=== PATIENT | female | born 2000 | race Caucasian/White ===

== ENCOUNTER 2022-08-09 09:27 | Emergency (ER) | payer BC ==
[~2022-08-09] VITALS: Ht 170.2 cm; Wt 77.1 kg
[2022-08-09 09:36] VITALS: BP_SYST 141
--- NOTE | 2022-08-09 09:38 | NUR ---
Patient to ER bed 07 to gown for evaluation. Side rails up. Report given to OLVIN OCHOA.
--- NOTE | 2022-08-09 09:50 | NUR ---
Patient arrived to ED for c/o animal bite. Patient has wound from left ear. Patient had a 4 month wilson retriever. Patient denies taking any other medications prior to coming to hospital. Denies PMH. Dr. Villa [place] [facility] [place]
[2022-08-09] MEDS ORDERED: DIPHTH,PERTUSS(ACELL),TET VAC 0.5 ML VIAL (Tdap) I.M. ONE (10:00)
[2022-08-09] MEDS ORDERED: AUG875 PO (10:00)
[2022-08-09] MEDS ORDERED: BACITRACIN 1 GM OINT TP ONE (10:22)
[2022-08-09 10:33] VITALS: BP_SYST 125
--- NOTE | 2022-08-09 10:35 | NUR ---
Patient given written and verbal discharge instructions and verbalizes understanding. ER MD discussed with patient the results and treatment provided. Patient in stable condition. ID arm band removed. dressing on left ear cleaned and bacitracin applied. Rx of amoxicillin given. Patient educated on pain management and to follow up with PMD. Opportunity for questions provided and answered. Medication side effect fact sheet provided.
== END 2022-08-09 10:35 | disposition home or self-care (01) ==
LOC: SED 09:27
DX: S01.312A Laceration without foreign body of left ear, initial encounter (principal); Z79.899 Other long term (current) drug therapy; W54.0XXA Bitten by dog, initial encounter; Y93.89 Activity, other specified; Y92.89 Other specified places as the place of occurrence of the external cause; Y99.8 Other external cause status
CPT/HCPCS: 90715; 99283